=== PATIENT | male | born 1990 | race Two or more races ===

== ENCOUNTER 2024-09-08 18:42 | Emergency (ER) | payer OTHER ==
[~2024-09-08] VITALS: Ht 180.3 cm; Wt 95.5 kg
[2024-09-08] MEDS: triamcinolone acetonide 40mg/ml inj IM ONE (19:34)
[2024-09-08 19:53] VITALS: BP 130/70; PULSE 60; RESP 16; TEMP 98.6; O2SAT 99
== END 2024-09-08 19:55 ==
LOC: EEVIPCON 18:43 → ER 18:43
DX: L23.7 Allergic contact dermatitis due to plants, except food (principal)
CPT/HCPCS: 96372; 99283; J3301; A6446